=== PATIENT | female | born 1960 | race Caucasian/White ===

== ENCOUNTER → 2019-06-12 10:52 | Outpatient (CLI) | payer OTHER, SELFPAY ==
--- NOTE | 2019-06-12 | DI.MG.S_ITS ---
BILATERAL DIGITAL SCREENING MAMMOGRAM 3D/2D WITH CAD: 06/12/2019 CLINICAL: Routine screening. Family history of breast cancer. Comparison is made to exams dated: 01/29/2016 mammogram, 01/28/2017 mammogram, and 01/28/2018 mammogram - [facility] for [email or web address]. There are scattered fibroglandular elements in both breasts. Current study was also evaluated with a Computer Aided Detection (CAD) system. No significant masses, calcifications, or other findings are seen in either breast. There has been no significant interval change. IMPRESSION: NEGATIVE There is no mammographic evidence of malignancy. A 1 year screening mammogram is recommended. This exam was interpreted at Station ID: [id number]. NOTE: For mammograms, a report in lay terms will be sent to the patient. Approximately 15% of breast malignancies will not be visualized mammographically. In the management of a palpable breast mass, a negative mammogram must not discourage biopsy of a clinically suspicious lesion. Electronically Signed By: Ramon johnson/shazia:06/14/2019 12:53:34 letter sent: Normal Exam ACR BI-RADS Category 1: Negative [id number]
== END ==
PROVIDERS: Visit Provider Family Medicine
DX: Z12.31 Encounter for screening mammogram for malignant neoplasm of breast (principal); Z80.3 Family history of malignant neoplasm of breast
CPT/HCPCS: 77063; 77067

== ENCOUNTER → 2019-12-03 10:11 | Outpatient (CLI) | payer OTHER, SELFPAY ==
[2019-12-03 23:06] LABS: COVID19 Sendout Not Detected (Not Detect)
== END ==
PROVIDERS: Visit Provider Physician Assistant
DX: Z01.812 Encounter for preprocedural laboratory examination (principal)
CPT/HCPCS: 87635

== ENCOUNTER 2019-12-06 06:36 | Inpatient (IN) | payer OTHER, SELFPAY ==
[2019-11-30 14:52] VITALS: BMI 29.2
[2019-12-06] VITALS (18 sets, daily range): BP systolic 109–151; BP diastolic 59–92; PULSE 75–102; RESP 8–19; TEMP 36.1–37.3; O2SAT 94–100; BMI 29.2; BMI 32.6
--- NOTE | 2019-12-06 | DI.RAD.S_ITS ---
PROCEDURE: XR LUMBAR SPINE 2-3V INDICATIONS: L4-5 TLIF, L5-S1 HWR AND REINCERTION TECHNIQUE: 2 intraoperative fluoroscopic views of the lumbar spine were acquired. COMPARISON: None. FINDINGS: Intraoperative fluoroscopic images of lower lumbar spine shows transpedicular fusion at L4 through S1 levels with intervertebral spacer placement at L4-5 level. IMPRESSION: Fluoroscopy guidance was provided intraoperatively for fusion of lower lumbar spine. Dictated by: Ishan Hylton M.D. on 12/06/2019 at 12:22 Approved by: Ishan Hylton M.D. on 12/06/2019 at 12:23
[2019-12-06] MEDS: CLINDAMYCIN 600 MG/50 ML PIGGYBACK 50 MG IV (07:40)
[2019-12-06] MEDS: LACTATED RINGERS 1,000 ML 42 ML IV ×3 (07:40→13:15)
--- NOTE | 2019-12-06 07:46 | PM.PREOP ---
Pre-operative Note COVID-19 COVID-19 status: Negative Result date/Date tested (Pos, Neg/Pending): 12/03/19 Interval Note History & Physical reviewed/Exam performed by Physician: Yes Changes to H&P: No
--- NOTE | 2019-12-06 08:37 | SUR.OPER ---
Prone on spine table, head in foam head support, padded chest and pelvic supports, gel pad at knees, lower legs supported by pillows; nipples, genitalia and toes free of pressure, arms secured on foam padded arm boards at <90 degrees abduction. Tape over blanket at thigh secured to table.
[2019-12-06] MEDS: BUPIVACAINE LIPOSOME 266 MG/20 ML VIAL INJ (08:42)
[2019-12-06] MEDS: BUPIVACAINE 0.25% W/ EPI 30 ML VIAL INJ (08:43)
[2019-12-06] MEDS: ACETAMINOPHEN IV 1,000 MG/100 ML VIAL 400 MG IV (11:32)
--- NOTE | 2019-12-06 11:58 | PM.OP.1 ---
Operative Date/Time/Diagnoses Date of procedure: 12/06/19 Time of procedure: 07:58 Pre-op diagnosis: 1. Hx of L5-S1 fusion with retained hardware 2. L4-5 spondylolisthesis 3. L4-5, L5-S1 spinal stenosis Post-op diagnosis: same Procedure & Clinicians Procedure: 1. L4-5 posterolateral and posterior interbody fusion 2. L4-5 posterior interbody cage placement 3. L5-S1 posterior non-segmental instrumentation removal 4. L5-S1 revision laminectomy with exploration of fusion 5. L4-5, L5-S1 posterior segmental instrumentation with pedicle screw placement 6. L5-S1 posterolatearl fusion 7. Caldwell of bone marrow from iliac crest through a separate incision 8. Utilization of microsurgical technique and operating microscope Same procedure as scheduled: Yes Indications: Patient has been having chronic back pain and worsening lumbar radiculopathy.\ Patient had prior fusion surgery and has been having worsening back pain and leg pain as well as weakness in her legs. Patient failed multiple conservative management with worsening pain weakness and numbness in her lower extremity. Patient has been having difficulty performing activity of daily living. After discussing risks benefits of treatment options, patient elected proceed with surgery. Surgeon: Clarissa Rubio Vineyard Worker: Sandra Locke Click Yes if Unassisted: No Anesthesia Type: General Operative Notes Closure Type: primary Prosthetic devices, grafts, tissues, transplants, or devices: Globus revolve screws, Rise cage Applied: catheter Estimated Blood Loss (mL): 200 Blood products transfused: none Procedure in detail: Patient was seen in the preoperative area. Risks and benefits of the surgery was discussed with the patient. Informed consent was obtained from the patient and placed in the chart. Surgical site was marked. Patient was taken to the operative room. General anesthesia was administered. Prophylactic antibiotic was given to the patient less than 30 min before the incision was made. Patient was placed into a prone position on the Kevin table. Patient's back was then prepped and draped in the sterile fashion. Time-out was performed at this time. Using patient's previous scar incision was made over the L4-5 L5-S1 interval on the left side. Fascia was incised in line with skin incision. Patient's previously placed hardware over the L5-S1 level was identified by dissecting down to the level the hardware using a Bovie and a Clifton. The locking caps which was removed using globus screwdriver. The locking bora was then removed from the tulips of the pedicle screws using a Apolinar. The pedicle screws were then removed using the screwdriver. The screws were found to have good purchase. The Globus and MARS retractors was then placed into the wound and docked onto the L4 and L5 lamina using C-arm guidance. Using microsurgical technique and operating microscope a laminectomy facetectomy was performed by removing the L4 lamina and the L4-5 facet. The disc space at L4-5 level was identified next. And a total diskectomy was performed at L4-5 level. The endplates were decorticated using a rasp and shaver. The total diskectomy and decortication was performed at L4-5 level in order to to accomplish a L4-5 fusion. The local bone from the laminectomy and facetectomy was saved for local bone grafting. After the total diskectomy and decortication was completed, Bio4 bone graft material was combined with local bone that was harvested earlier. At this time, a separate skin is incision was made over the iliac crest. A Jamshidi needle was inserted into the iliac crest through a separate skin incision. 5 cc of bone marrow aspiration was obtained through the separate skin incision using a Jamshidi needle from the iliac crest. The bone marrow aspiration was combined with local bone and the Bio4 bone grafting material. The bone grafting material was placed into the L4-5 interbody space along with a expandable cage. The cage was expanded to its maximum height using the torque limiting screwdriver. At this time a mirror image incision was made on the right side. The fascia was incised in line with the skin incision. Patient's previously placed hardware on the right side was then removed in the same fashion as it was on the left side. The hardware was also found to have good purchase. The fusion mass on the left side was exposed by performing a right-sided hemilaminectomy at L5-S1 level. The hemilaminectomy was performed using the Kerrison rongeur to undercut the lamina as well removing additional epidural scar tissue for purpose of decompressing the epidural space. The fusion mass was explored and was found have visible motion indicating pseudoarthrosis. Globus MARS retractor was inserted and docked onto the L4-5 L5-S1 posterolateral gutter. Using the power drill, posterior-lateral decortication was performed at L4-5 L5-S1 level until bleeding cortical bone was identified. The remaining bone grafting material was placed into the L4-5 L5-S1 posterior lateral gutter he order to accomplish posterolateral fusion at the L4-5 L5-S1 level. Using the double C-arm technique, pedicle screws were placed into the L4, L5 and S1 pedicles bilaterally. This was done by placing the Jamshidi needle into the pedicles, then placing the guidewires over the Jamshidi needle, and finally placing the cannulated screws over the guidewires bilaterally. After the pedicle screws were placed, 2 titanium rods was locked into the heads of the pedicle screws using locking caps and torque limiting screwdriver. After all the hardware was placed, and confirmed with AP and lateral C-arm imaging, the wound was then irrigated with sterile normal saline and packed with Ray-Ludmila gauze for 3 min to accomplish hemostasis. After the gauze was removed the deep fascia was closed with #1 Vicryl suture. The subcutaneous layer was closed with 2-0 Vicryl. The skin was closed with skin emelia. Patient tolerated the procedure well. There were no complications. Complications: none Post-operative Condition: stable Disposition: PACU Plan for aftercare: Admit to inpatient hospital
[2019-12-06] MEDS: fentaNYL 100 MCG/2 ML INJ IV (12:30)
[2019-12-06] MEDS: ONDANSETRON 4 MG/2 ML INJ IV (12:30)
[2019-12-06] MEDS: hydrOXYzine 50 MG/ML INJ 25 MG IM (12:30)
--- NOTE | 2019-12-06 13:05 | SUR.PHASEI ---
Patient repositioning herself in bed. States that she cannot get comfortable and that her pain is an 8/10. Patient falls asleep after conversation. VSS. This nurse will wait to administer more pain medication due to drowsiness and the continued need for oxygen.
--- NOTE | 2019-12-06 13:46 | PC.NURSE ---
Pt arrived via PACU. Pt rouses to her name and knows she has had surgery and that she is at [facility]. Described surgery but fell asleep mid way through. Pt turned to comfort on left side. instructed not to twist and that we would log roll her as needed. Skin intact, dressing mid back shows dime size shadow drainage. VSS, SCD's on, continuous pulse Ox in place. Report rec'd from DRIVER MANAGER.
--- NOTE | 2019-12-06 14:29 | CM.DANOTE ---
DCP: Case received, EMR reviewed and checked on patient. Patient sleeping in her room, already placed name of this adult protective caseworker on the board in her room when she was down in surgery. Unable to speak to patient at this time, but was able to review some of her history in her chart to initiate DCP assessment. Patient is a 59 year old female who admitted early this morning to the care of the orthopedic team. PCP: Unknown at this time, have not been able to speak to patient as of yet. Payer: confirmed: Seven. Patient came to the hospital for a surgical procedure. She had an L4-5 posteolateral & posterior interbody fusion. According to notes, patient has had history of chronic bilateral lower back pain. Patient is sleeping in her room, she recently came out of surgery. Patient resides in [place] and is employed at [employer]. She has a son named Lc, who also lives in [place]. P: DCP to follow and be available for any resources needed. She has orders for P.T & O.T. Will collaborate with therapy team as well when they start to work with patient. Will also attempt to meet with patient tomorrow as well, when she is awake. Faina Shen RN/Work Car Operator
[2019-12-06] MEDS: SODIUM CHLORIDE 0.9% 1,000 ML 100 ML IV (15:03)
[2019-12-06] MEDS: CLINDAMYCIN 900 MG/50 ML PIGGYBACK 50 MG IV ×2 (15:31→23:29)
[2019-12-06] MEDS: GABAPENTIN 600 MG TABLET PO ×2 (15:31→20:41)
--- NOTE | 2019-12-06 16:48 | PT.IIE ---
Current Diagnoses Spondylolisthesis, lumbar region (12/06/19) Other spondylosis with radiculopathy, lumbosacral region (12/06/19) Spinal stenosis, lumbar region with neurogenic claudication (12/06/19) Arthrodesis status (12/06/19) Surgery Performed Operation Date: 12/06/19 07:45 Actual Procedures p L4-5 TLIF, L5-S1 HWR, L4-S1 PSF w/ instrumenation - Clarissa Rubio MD Surgical History (Last Updated 08/31/19 @ 09:24 by Sandra Wheeler RN) History of bilateral tubal ligation (Acute) History of colonoscopy (Acute) History of lumbar fusion (Acute 06/2000) History of partial hysterectomy (Acute) Hx of dilation and curettage (Acute) Hx of elbow surgery (Acute) Hx of shoulder surgery (Acute) Hx of shoulder surgery (Acute) Medical History (Last Updated 08/31/19 @ 09:35 by Sandra Wheeler RN) Asthma (Acute) Chronic back pain (Acute) DDD (degenerative disc disease) (Acute) Diverticulosis (Acute) Floaters (Acute) Ganglion cyst of both wrists (Acute) HTN (hypertension) (Acute) Kidney stones (Acute ~2017) Pelvic fracture (Acute 09/2017) Sciatica (Acute) Physical Therapy Inpatient Evaluation/Re-Eval M1 PT/OT-IP Prior Functional Status Start: 12/06/19 14:48 Freq: NEEDED Status: Active Protocol: Document 12/06/19 16:26 AW (Rec: 12/06/19 16:47 AW [id number]) Medical Review Prior Functional Status Medical History Reviewed Yes Communication Pt is an effective verbal communicator. Mobility and Gait Pt reports independent community ambulation up to ~1/ 8 mile. As recently as 6 months ago, she was walking up to 2 miles per day with her dog. Activities of Daily Living and IADL's Independent, including driving , shopping, and cooking. Social History Household Members children Living Arrangements House Number of Floors (Floors) Two Floors Number of Stairs To Enter/Railing? 2 GERALDINE through the garage with left rail ascending. Pt's bedroom is on the second level , requiring 7 steps with right rail ascending, landing, and another 8 steps with left rail ascending. Pt has been able to stay on the main level after a stable pelvic fracture but hopes to be able to sleep in her own bed when she discharges. Home Environment Standard Height Toilet,Walk in Shower,Built-In Shower Seat Home Equipment Front Wheel Walker,Straight Cane Employment Status Unemployed Additional Social History Comment Pt was working at [employer] until recently and hopes to return to that job. She lives with her 25 yo son who works full-time on the conduit cleaner. Pt states he would be able to help her with anything she needs during the day. M2 PT-IP Current Condition Start: 12/06/19 14:48 Freq: NEEDED Status: Active Protocol: Document 12/06/19 16:26 AW (Rec: 12/06/19 16:47 AW [id number]) Physical Therapy Current Condition Current Condition Evaluation Date 12/06/19 Treatment Diagnosis s/p L4-5 L5-S1 TLIF, impaired mobility Onset Date 12/06/19 Precautions Lumbar Precautions Log Roll,No Twisting,Limit Bending,Lifting Restriction of 10 lbs,Gait Belt above Incisional Area M3 PT-IP Subjective Start: 12/06/19 14:48 Freq: NEEDED Status: Active Protocol: Document 12/06/19 16:26 AW (Rec: 12/06/19 16:47 AW [id number]) Subjective Physical Therapy Visit Type Type Initial Evaluation Visit Start Time 15:58 Visit Stop Time 16:24 Total Visit Minutes 26 Physical Therapy Visit Comments Patient Comments Pt is groggy but willing to participate with PT. Therapy Pain Assessment Pain When Pain Assessed At Rest Pain Present Pain Present Pain Reported Location low back Intensity 9 Scale Used unchanged with mobility Pain Behaviors Facial Grimacing,Restlessness, Wincing Pain Management Techniques Apply Cold,Re-positioning, Timing of Activity with Medications M4 PT-IP Mobility and Gait Start: 12/06/19 14:48 Freq: NEEDED Status: Active Protocol: Document 12/06/19 16:26 AW (Rec: 12/06/19 16:47 AW [id number]) PT-Bed Mobility Assessment Rolling Type of Rolling Log Rolling,Roll to Left Level of Assist Contact Guard Assistance Supine to Sit Supine to Sit Minimal Assistance,1 Person Assistance Sit to Supine Sit to Supine Minimal Assistance,1 Person Assistance Scooting Scooting to Edge of Bed Contact Guard Assistance PT-Transfer Assessment Sit to and From Stand Sit to and from Stand Contact Guard Assistance,1 Person Assistance,Use of Upper Extremities Equipment Transfer Assistive Device Gait Belt,Front Wheeled Walker Orthotic/Prosthetic Devices or Brace: No Transfers Transfer Destination Bed Transfer Technique pt ambulated with FWW Transfer Ability Level of Assist Contact Guard Assistance Comments Mobility Comments Pt was sidelying on her left side when PT arrived. She completed sidelying to sit with min A x 1 and then was able to scoot toward EOB CGA. She complained of mild lightheadedness which subsided within one minute. SBP was stable in the 150's. She then stood from the bed with the FWW and CGA, requiring cues to keep both hands on the bed for pushoff to avoid lumbar twisting. Pt then slowly ambulated 20 feet in the room with FWW CGA before requesting return to bed due to continued grogginess. Pt completed sit to sidelying with min A x 1 to elevate her legs to the bed. Pt was repositioned on her left side with call light, table, and all needs within reach. Gait Assessment Gait Gait Assistance Required: Contact Guard Assist Distance (Feet) 20 Able to Maintain Weight Bearing Status Yes During Gait Assistive Devices Assistive Device Gait Belt,Front Wheeled Walker Orthotic/Prosthetic Devices or Brace: No Gait Deviations General Gait Pattern Antalgic,Decreased Stride Length,Decreased Feet Clearance,Flexed Trunk,Step-to Gait Factors Limiting Gait Function Factors Limiting Gait Function Decreased Activity Tolerance, Decreased Strength,Limited Range of Motion,Pain,Poor Balance,Poor Safety Awareness Comments Gait Comments See mobility comments. Stair Climbing Assessment Comments Stair Climbing Comments Not assessed due to pt's decreased ability to attend to task. PT-Balance Assessment Sitting Balance and Reactions Static Sitting Balance Ability Good Dynamic Sitting Balance Ability Good Standing Balance and Reactions Static Standing Balance Ability Fair Dynamic Standing Balance Ability Fair Device Used FWW M5 PT-IP Objective Assessments Start: 12/06/19 14:48 Freq: NEEDED Status: Active Protocol: Document 12/06/19 16:26 AW (Rec: 12/06/19 16:47 AW [id number]) Orientation Orientation/Cognition Level of Alertness Alert Orientation Name,Day of Week,Place, Situation Language Function Ability No Deficits Noted Safety Awareness Decreased Safety Awareness Memory Description No Deficits Noted Gross Range of Motion Upper Extremity ROM Assessment Within Functional Limits Lower Extremity ROM Assessment Within Functional Limits Strength Lower Extremity Strength Assessment Bilaterally Impaired Comments Strength Comments Grossly 4-/5 to 4/5 BLE Coordination Assessment Gross Coordination Gross Coordination WNL Sensation Assessment Sensation Gross Sensation WNL Comments Sensation Comments Pt reported lack of shooting pain in either LE. Muscle Tone Muscle Tone WNL Yes M6 PT-IP Treatment Start: 12/06/19 14:48 Freq: NEEDED Status: Active Protocol: Document 12/06/19 16:26 AW (Rec: 12/06/19 16:47 AW [id number]) Physical Therapy Treatment Education Education Provided Precautions,Weight Bearing Status,Post-Op Packet,Safety Other Treatments Other Treatment Performed Provided education on role of PT, plan of care, post-op precautions, and safe use of FWW. M7 PT-IP Assessment and Plan Start: 12/06/19 14:48 Freq: NEEDED Status: Active Protocol: Document 12/06/19 16:26 AW (Rec: 12/06/19 16:47 AW [id number]) PT Summary Assessment and Plan Potential Rehabilitation Potential Good Status of Condition at Evaluation Evolving Summary Impairments Pain,ROM,Strength,Balance,Bed Mobility,Transfers,Gait, Activity Tolerance Assessment Summary Oksana is a 59 yo woman seen for PT evaluation on POD0 following TLIF. She is functionally independent at baseline but admits to a limit of 1/8 mile ambulation due to low back and LLE pain. On evaluation, pt reported 9/10 pain at rest and during mobility. She moved carefully and without increased agitation, denying lower extremity pain. She required min assist for bed mobility and CGA for all out of bed mobility with FWW. PT will continue to follow for progress but anticipates she will be safe to discharge to her home environment with family assist once medically cleared. Goals Bed Mobility Goal Independent Transfer Goal Independent,Front Wheeled Walker Gait Goal Independent,Front Wheel Walker Gait Distance 150 Other Goals - up/down 7 steps with R rail ascending and 8 steps with L rail ascending SBA Recommendations To Nursing Amount of Assist Needed 1 Person Assist Discharge Recommendations PT Discharge Recommendations Home with Assistance Other Discharge Recommendations Will continue to assess and refine recommendation as pt progresses Transportation Needs at Discharge Private Vehicle
[2019-12-06] MEDS: OXYCODONE IR 10 MG TABLET PO (17:04)
[2019-12-06] MEDS: ACETAMINOPHEN 325 MG TABLET 650 MG PO (20:40)
[2019-12-06] MEDS: SENNOSIDES 8.6 MG TABLET 17.2 MG PO (20:41)
[2019-12-06] MEDS: DOCUSATE 100 MG CAPSULE PO (20:41)
--- NOTE | 2019-12-06 22:50 | PC.NURSE ---
reinforced dressing with coversite, old dressing was saturated. pt ambulated with PT today and walked around in her room. gonzalez patent. pain controlled with oxycodone 10mg. call light in reach. bed alarm active.
[2019-12-07] MEDS: SODIUM CHLORIDE 0.9% 1,000 ML 100 ML IV (03:00)
[2019-12-07 06:00] VITALS: BP 105/53; PULSE 80; RESP 16; TEMP 36.9; O2SAT 95
[2019-12-07] MEDS: OXYCODONE IR 10 MG TABLET PO ×3 (06:11→20:20)
[2019-12-07 06:28] LABS: Hematocrit 29.2 % (36-46); Hemoglobin 10.1 g/dL (12.0-16.0)
[2019-12-07] MEDS: GABAPENTIN 600 MG TABLET PO ×3 (08:05→20:20)
[2019-12-07] MEDS: LOSARTAN 50 MG TABLET 100 MG PO (08:05)
[2019-12-07] MEDS: DOCUSATE 100 MG CAPSULE PO ×2 (08:05→20:20)
--- NOTE | 2019-12-07 08:12 | PM.PN.1 ---
Exam Vital Signs (past 8 hours): - 12/07/19 06:00 Temperature 98.4 F Pulse Rate 80 Respiratory Rate 16 Blood Pressure 105/53 L Pulse Oximetry 95 Oxygen Delivery Method Room Air Oxygen Flow Rate 0 Objective Labs Result Diagrams: 12/07/19 06:13 Labs: Laboratory Results - last 24 hr 12/07/19 06:13 Hgb 10.1 L Hct 29.2 L Assessment & Plan Assessment & Plan narrative: Patient is admitted after surgery. Patient has been stable and eating drinking well. Patient is neurovascularly intact on exam. Patient has no signs or symptoms of DVT. Patient's dressing is clean dry and intact. Pain consistent with post op status. PT today for mobility training. Will re-assess tomorrow.
[2019-12-07 08:44] VITALS: BP 130/71; PULSE 96; RESP 16; TEMP 37; O2SAT 93
--- NOTE | 2019-12-07 09:37 | OT.IP.EVAL ---
Current Diagnoses Spondylolisthesis, lumbar region (12/06/19) Other spondylosis with radiculopathy, lumbosacral region (12/06/19) Spinal stenosis, lumbar region with neurogenic claudication (12/06/19) Arthrodesis status (12/06/19) Surgery Performed Operation Date: 12/06/19 07:45 Actual Procedures p L4-5 TLIF, L5-S1 HWR, L4-S1 PSF w/ instrumenation - Clarissa Rubio MD Past Medical History (Last Updated 08/31/19 @ 09:35 by Sandra Wheeler RN) Asthma (Acute) Chronic back pain (Acute) DDD (degenerative disc disease) (Acute) Diverticulosis (Acute) Floaters (Acute) Ganglion cyst of both wrists (Acute) HTN (hypertension) (Acute) Kidney stones (Acute ~2017) Pelvic fracture (Acute 09/2017) Sciatica (Acute) Surgical History (Last Updated 08/31/19 @ 09:24 by Sandra Wheeler RN) History of bilateral tubal ligation (Acute) History of colonoscopy (Acute) History of lumbar fusion (Acute 06/2000) History of partial hysterectomy (Acute) Hx of dilation and curettage (Acute) Hx of elbow surgery (Acute) Hx of shoulder surgery (Acute) Hx of shoulder surgery (Acute) Occupational Therapy Inpatient Evaluation/Re-Eval M1 PT/OT-IP Prior Functional Status Start: 12/07/19 12:58 Freq: NEEDED Status: Active Protocol: Document 12/07/19 08:40 [facility] (Rec: 12/07/19 13:17 [facility] [id number]) Medical Review Prior Functional Status Medical History Reviewed Yes Communication Pt is an effective verbal communicator. Mobility and Gait Pt reports independent community ambulation up to ~1/ 8 mile. As recently as 6 months ago, she was walking up to 2 miles per day with her dog. Activities of Daily Living and IADL's Independent, including driving , shopping, and cooking. Social History Household Members children Living Arrangements House Number of Floors (Floors) Two Floors Number of Stairs To Enter/Railing? 2 GERALDINE through the garage with left rail ascending. Pt's bedroom is on the second level , requiring 7 steps with right rail ascending, landing, and another 8 steps with left rail ascending. Pt has been able to stay on the main level after a stable pelvic fracture but hopes to be able to sleep in her own bed when she discharges. Home Environment Standard Height Toilet,Walk in Shower,Built-In Shower Seat Home Equipment Front Wheel Walker,Straight Cane Employment Status Unemployed Additional Social History Comment Pt was working at [employer] until recently and hopes to return to that job. She lives with her 25 yo son who works full-time on the rn night. Pt states he would be able to help her with anything she needs during the day. M2 OT-IP Current Condition Start: 12/07/19 12:58 Freq: Status: Active Protocol: Document 12/07/19 08:40 [facility] (Rec: 12/07/19 13:17 [facility] [id number]) Occupational Therapy Current Condition Current Condition Evaluation Date 12/07/19 Treatment Diagnosis Lumbar radiculopathy, S/P L4-5 TLIF, L5-S1 HWR, L4-5 PSF with instr. Diagnosis Onset Date 12/06/19 Post Operative Precautions Lumbar Precautions Log Roll,No Twisting,Limit Bending,Lifting Restriction of 10 lbs,Gait Belt above Incisional Area Weight Bearing Status Weight Bearing Status Weight Bear as Tolerated M3 OT- IP Subjective and Pain Start: 12/07/19 12:58 Freq: Status: Active Protocol: Document 12/07/19 08:40 [facility] (Rec: 12/07/19 13:17 [facility] [id number]) OT- Subjective Occupational Therapy Visit Type Type Initial Evaluation Visit Start Time 08:40 Visit Stop Time 09:37 Total Visit Minutes 57 Occupational Therapy Visit Comments Patient Comments Pt willing to get out of bed. Patient/Caregiver Goals To go home. OT Pain Assessment Pain When Pain Assessed At Rest Pain Present Pain Present Pain Reported Location low back Intensity 6 M4 OT- IP ADL's Start: 12/07/19 12:58 Freq: Status: Active Protocol: Document 12/07/19 08:40 [facility] (Rec: 12/07/19 13:17 [facility] [id number]) OT HAA-Xlnx-Phtjhup General Evaluation Self-Feeding Ability Independent OT ADL-Grooming General Evaluation Grooming Ability Standby Assistance Areas Needing Assistance Retrieving/Set-up of Grooming Items Comments OT Grooming Comments Able to do while standing at the sink with FWW. OT ADL-Oral Care General Eval Oral Care Ability Independent Comments Oral Care Comments Educated pt on back precautions to lean at hips to spit or spit into a cup. OT ADL-Dressing General Eval Lower Body Dressing Ability Maximum Assistance Areas Needing Assistance Socks Assistive Devices Dressing Assistive Devices Manager Ed,Sock Aid Comments OT Dressing Comments Educated pt on back precautions and how to use LB dressing equipment to increase ease and independence. LB dressing equipment issued to pt. OT ADL-Toileting General Evaluation Toileting Ability Total Assistance Comments OT Toileting Comments Pt gonzalez in place. Educated pt best to stand to wipe and get a toilet paper aid as pt not wanting her son to assist her with pericare needs at home. OT ADL-Bathing Bathing Type Bathing Type Sponge Bath General Evaluation Bathing Ability Moderate Assistance Comments OT Bathing Comments Pt able do pericare needs and needing assist to help clean in back as pt unable to reach all the way back. Suggested for pt to get toilet paper aid or long thin towel to assist for hygiene needs at home. M5 OT- IP IADL's Start: 12/07/19 12:58 Freq: Status: Active Protocol: Document 12/07/19 08:40 [facility] (Rec: 12/07/19 13:17 [facility] [id number]) OT-Instrumental Activities of Daily Living Home Safety Awareness Awareness of Need for Assistance at Home Good Awareness Ability to Problem Solve Emergency Able to Problem Solve Situations Home Safety Comments At this time, pt's son will be able to assist for IADl needs . Inspector And Unloader Inspector And Unloader Caregiver Provides Assist M6 OT- IP Functional Cognition Start: 12/07/19 12:58 Freq: Status: Active Protocol: Document 12/07/19 08:40 [facility] (Rec: 12/07/19 13:17 [facility] [id number]) OT- Vision and Hearing OT- Hearing Assessment OT- Hearing Assessment WFL M7 OT- IP Mobility and Balance Start: 12/07/19 12:58 Freq: Status: Active Protocol: Document 12/07/19 08:40 [facility] (Rec: 12/07/19 13:17 [facility] [id number]) OT-Transfer Assessment Sit to and From Stand Sit to and from Stand Contact Guard Assistance, Minimal Assistance Transfers Transfer Ability Contact Guard Assistance Technique Transfer Destination Bed,Chair Transfer Technique Stand Step Pivot Devices Transfer Assistive Devices Gait Belt,Front Wheeled Walker Comments Mobility Comments Attempt to have pt roll to the left to get out of bed as pt does so at home. Pt already to her right side and unable to roll to the left and complaining of back spasms and not wanting to try to get out on the left side at this time . Therefore pt already rolled on the right side and needing assist to help place pillow in between her knees able to get up with grab bar and and CGA form therapist. CGA to FIORELLA to stand to FWW. CGA to walk with FWW . OT- Gait Assessment Comments Gait Ability Comments CGA with FWW. OT- Balance Assessment Sitting Balance and Reactions Static Sitting Balance Ability Normal Dynamic Sitting Balance Ability Good Standing Balance and Reactions Static Standing Balance Ability Fair M8 OT- IP Objective Assessments Start: 12/07/19 12:58 Freq: Status: Active Protocol: Document 12/07/19 08:40 [facility] (Rec: 12/07/19 13:17 [facility] [id number]) OT Gross Range of Motion Upper Extremity Range of Motion Assessment Within Functional Limits OT Strength Upper Extremity Strength Assessment Within Functional Limits M9 OT- IP Assessment and Plan Start: 12/07/19 12:58 Freq: Status: Active Protocol: Document 12/07/19 08:40 [facility] (Rec: 12/07/19 13:17 [facility] [id number]) OT Summary Assessment and Plan Potential Rehabilitation Potential Good Analytic Complexity at Evaluation Low Summary OT Impairments Pain,Functional Mobility, Dressing,Toileting,Bathing, Toilet Transfers,Shower Transfers,Activity Tolerance Progress Towards Goals Progressing Toward Goals,Slow Progress due to Pain Assessment Summary Pt low complexity and main barriers are pain, bed mobility and now also needing assist for ADL's due to her recent back surgery. OT to work with pt on independence with ADl's with LB dressing equipment needs as pt does not want her son to assist for any hygiene needs. Pt looking to go home with pt's son assist. Pt's son may need to come in for caregiver training pending how pt progresses with bed mobility needs. Goals Grooming Goal Independent Dressing Goal Independent Toileting Goal Independent Bathing Goal Standby Assistance Toilet Transfer Goal Independent Shower Transfer Goal Standby Assistance Patient/Caregiver Education Goal Caregiver Independent Assisting Patient Days to Meet Goals 5 Frequency of Treatment Frequency Of Treatment Once a Day Treatment Plan OT Treatment Plan ADL Training,Functional Mobility,Patient/Family Education,Discharge Planning Other Treatment Recommendations and Next Shower, continue pratcie with Treatment Focus LB dressing equipmnt for dressing needs. Discharge Recommendations OT Discharge Recommendations Home with Assistance Home Equipment Needs Shower chair, ? BSC/RTS Transportation Needs at Discharge Private Vehicle
[2019-12-07] MEDS: hydrOXYzine pamoate 25 MG CAPSULE PO ×3 (09:57→20:20)
[2019-12-07] MEDS: Budesonide-Formoterol [Symbicort] 2 EACH INH (09:58)
--- NOTE | 2019-12-07 11:15 | PT.IPTN ---
Current Diagnoses Spondylolisthesis, lumbar region (12/06/19) Other spondylosis with radiculopathy, lumbosacral region (12/06/19) Spinal stenosis, lumbar region with neurogenic claudication (12/06/19) Arthrodesis status (12/06/19) Surgery Performed Operation Date: 12/06/19 07:45 Actual Procedures p L4-5 TLIF, L5-S1 HWR, L4-S1 PSF w/ instrumenation - Clarissa Rubio MD Physical Therapy Treatment Note M2 PT-IP Current Condition Start: 12/06/19 14:48 Freq: NEEDED Status: Active Protocol: Document 12/06/19 16:26 AW (Rec: 12/06/19 16:47 AW [id number]) Physical Therapy Current Condition Current Condition Evaluation Date 12/06/19 Treatment Diagnosis s/p L4-5 L5-S1 TLIF, impaired mobility Onset Date 12/06/19 Precautions Lumbar Precautions Log Roll,No Twisting,Limit Bending,Lifting Restriction of 10 lbs,Gait Belt above Incisional Area M3 PT-IP Subjective Start: 12/06/19 14:48 Freq: NEEDED Status: Active Protocol: Document 12/07/19 10:53 [facility] (Rec: 12/07/19 12:13 [facility] [id number]) Subjective Physical Therapy Visit Type Type Treatment Note Visit Start Time 10:52 Visit Stop Time 11:15 Total Visit Minutes 23 Number of SURVEYOR HELPER ROD Visits 1 Physical Therapy Visit Comments Patient Comments Pt willing to do therapy Therapy Pain Assessment Pain When Pain Assessed At Rest Pain Present Pain Present Pain Reported Location low back Intensity 7 Scale Used decreased with mobility Pain Management Techniques Apply Cold,Re-positioning, Timing of Activity with Medications M4 PT-IP Mobility and Gait Start: 12/06/19 14:48 Freq: NEEDED Status: Active Protocol: Document 12/07/19 10:53 [facility] (Rec: 12/07/19 12:13 [facility] [id number]) PT-Transfer Assessment Sit to and From Stand Sit to and from Stand Contact Guard Assistance,1 Person Assistance,Use of Upper Extremities Equipment Transfer Assistive Device Gait Belt,Front Wheeled Walker Orthotic/Prosthetic Devices or Brace: No Transfers Transfer Destination Chair Transfer Technique pt ambulated with FWW Transfer Ability Level of Assist Contact Guard Assistance Comments Mobility Comments Pt stood from chair CGA, pt then ambulated to therapy stairs ~160ft, pt climbed three stairs x2 with left rail and HH assist. Pt then ambulated back to room ~160ft. Pt refused bed mobility and returned to chair requiring SBA for stand-sit. Gait Assessment Gait Gait Assistance Required: Standby Assistance Distance (Feet) 320 Able to Maintain Weight Bearing Status Yes During Gait Assistive Devices Assistive Device Gait Belt,Front Wheeled Walker Gait Deviations General Gait Pattern Antalgic,Decreased Stride Length,Decreased Feet Clearance,Flexed Trunk Factors Limiting Gait Function Factors Limiting Gait Function Decreased Activity Tolerance, Decreased Strength,Limited Range of Motion,Pain,Poor Balance Comments Gait Comments Pt ambulated ~320ft w/FWW/SBA, pt used small step through gait pattern and slow porsha. Pt reported decrease in pain with ambulation. Stair Climbing Assessment Evaluation Level of Assist On Stairs Contact Guard Assistance,1 Person Assistance Devices Stair Climbing Assistive Devices Left Railing Technique/Endurance Stair Climbing Direction Ascend and Descend Stair Climbing Technique Step to Step Number of Steps Climbed 3 Stair Climbing Set # Repetitions (reps) 2 Comments Stair Climbing Comments Pt used left rail and HH assist on right side to climb stairs. Pt was able to complete two sets of three steps. M5 PT-IP Objective Assessments Start: 12/06/19 14:48 Freq: NEEDED Status: Active Protocol: Document 12/06/19 16:26 AW (Rec: 12/06/19 16:47 AW [id number]) Orientation Orientation/Cognition Level of Alertness Alert Orientation Name,Day of Week,Place, Situation Language Function Ability No Deficits Noted Safety Awareness Decreased Safety Awareness Memory Description No Deficits Noted Gross Range of Motion Upper Extremity ROM Assessment Within Functional Limits Lower Extremity ROM Assessment Within Functional Limits Strength Lower Extremity Strength Assessment Bilaterally Impaired Comments Strength Comments Grossly 4-/5 to 4/5 BLE Coordination Assessment Gross Coordination Gross Coordination WNL Sensation Assessment Sensation Gross Sensation WNL Comments Sensation Comments Pt reported lack of shooting pain in either LE. Muscle Tone Muscle Tone WNL Yes M6 PT-IP Treatment Start: 12/06/19 14:48 Freq: NEEDED Status: Active Protocol: Document 12/06/19 16:26 AW (Rec: 12/06/19 16:47 AW [id number]) Physical Therapy Treatment Education Education Provided Precautions,Weight Bearing Status,Post-Op Packet,Safety Other Treatments Other Treatment Performed Provided education on role of PT, plan of care, post-op precautions, and safe use of FWW. M7 PT-IP Assessment and Plan Start: 12/06/19 14:48 Freq: NEEDED Status: Active Protocol: Document 12/07/19 10:53 CLB (Rec: 12/07/19 12:13 CLB [id number]) PT Summary Assessment and Plan Summary Assessment Summary Pt able to ambulate ~320ft w/ FWW/SBA and climb two sets of stairs for total of 6 steps. Pt recalled 2/3 back precautions. Pt will likely be able to d/c home with assist of her son. Goals Bed Mobility Goal Independent Transfer Goal Independent,Front Wheeled Walker Gait Goal Independent,Front Wheel Walker Gait Distance 150 Other Goals - up/down 7 steps with R rail ascending and 8 steps with L rail ascending SBA Frequency of Treatment Frequency Of Treatment Twice a Day Recommendations To Nursing Amount of Assist Needed 1 Person Assist Discharge Recommendations PT Discharge Recommendations Home with Assistance Transportation Needs at Discharge Private Vehicle
[2019-12-07 13:00] VITALS: BP 117/68; PULSE 93; RESP 15; TEMP 36.1; O2SAT 92
--- NOTE | 2019-12-07 13:03 | CM.DPC ---
DCP Cont: Was able to meet with patient today. She was sitting up in chair, alert and oriented. Confirmed with patient that son resides with her. He works overnight cashier, and will be able to assist her during the day if needed. She also confirmed that she does have a primary care provider at [facility], Dr. Armstrong. Patient uses no DME supplies at baseline. She is currently employed at [employer]. She indicated that when she goes back, she will be on light duty. She lost her approximately 5 years ago, and moved to this area from [place]. She has two sons. P: DCP to continue to follow. Patient should be able to go home when she is medically stable. Faina Shen RN/Manager [place]
--- NOTE | 2019-12-07 14:24 | PT.IPTN ---
Current Diagnoses Spondylolisthesis, lumbar region (12/06/19) Other spondylosis with radiculopathy, lumbosacral region (12/06/19) Spinal stenosis, lumbar region with neurogenic claudication (12/06/19) Arthrodesis status (12/06/19) Surgery Performed Operation Date: 12/06/19 07:45 Actual Procedures p L4-5 TLIF, L5-S1 HWR, L4-S1 PSF w/ instrumenation - Clarissa Rubio MD Physical Therapy Treatment Note M2 PT-IP Current Condition Start: 12/06/19 14:48 Freq: NEEDED Status: Active Protocol: Document 12/06/19 16:26 AW (Rec: 12/06/19 16:47 AW [id number]) Physical Therapy Current Condition Current Condition Evaluation Date 12/06/19 Treatment Diagnosis s/p L4-5 L5-S1 TLIF, impaired mobility Onset Date 12/06/19 Precautions Lumbar Precautions Log Roll,No Twisting,Limit Bending,Lifting Restriction of 10 lbs,Gait Belt above Incisional Area M3 PT-IP Subjective Start: 12/06/19 14:48 Freq: NEEDED Status: Active Protocol: Document 12/07/19 14:05 CLB (Rec: 12/07/19 14:35 CLB [id number]) Subjective Physical Therapy Visit Type Type Treatment Note Visit Start Time 14:05 Visit Stop Time 14:24 Total Visit Minutes 19 Number of BRIM BLOCKER Visits 2 Physical Therapy Visit Comments Patient Comments Pt willing to do therapy Therapy Pain Assessment Pain When Pain Assessed At Rest Pain Present Pain Present Pain Reported Location low back Intensity 7 Scale Used decreased with mobility Pain Management Techniques Apply Cold,Re-positioning, Timing of Activity with Medications M4 PT-IP Mobility and Gait Start: 12/06/19 14:48 Freq: NEEDED Status: Active Protocol: Document 12/07/19 14:05 CLB (Rec: 12/07/19 14:35 CLB [id number]) PT-Bed Mobility Assessment Supine to Sit Supine to Sit Standby Assistance,Head of Bed Elevated Sit to Supine Sit to Supine Standby Assistance,Head of Bed Elevated Scooting Scooting to Edge of Bed Standby Assistance PT-Transfer Assessment Sit to and From Stand Sit to and from Stand Contact Guard Assistance,1 Person Assistance,Use of Upper Extremities Equipment Transfer Assistive Device Gait Belt,Front Wheeled Walker Orthotic/Prosthetic Devices or Brace: No Transfers Transfer Destination Bed Comments Mobility Comments Pt insisted having HOB elevated for supine<>sit. Pt was on left side and sat up on EOB SBA, Pt then scooted to get feet on floor SBA. Pt stood requiring CGA and assist with walker stability. Pt stood SBA while HOMEMAK[employer] emptied gonzalez bag. Pt ambulated in [place] ~300ft w/FWW/SBA with increased pace, step length and foot clearance. Pt states that pain decreases with ambulation. Pt returned to bed requiring SBA for sitting on EOB and sidelying in bed with HOB elevated. Pt left in bed on left side with pillow behind and in between legs for comfort. Alarm on and call light close. Gait Assessment Gait Gait Assistance Required: Standby Assistance Distance (Feet) 300 Able to Maintain Weight Bearing Status Yes During Gait Assistive Devices Assistive Device Gait Belt,Front Wheeled Walker Orthotic/Prosthetic Devices or Brace: No Gait Deviations General Gait Pattern Antalgic,Decreased Stride Length,Decreased Feet Clearance,Flexed Trunk Factors Limiting Gait Function Factors Limiting Gait Function Decreased Activity Tolerance, Decreased Strength,Limited Range of Motion,Pain,Poor Balance Comments Gait Comments See mobility comments. M5 PT-IP Objective Assessments Start: 12/06/19 14:48 Freq: NEEDED Status: Active Protocol: Document 12/06/19 16:26 AW (Rec: 12/06/19 16:47 AW [id number]) Orientation Orientation/Cognition Level of Alertness Alert Orientation Name,Day of Week,Place, Situation Language Function Ability No Deficits Noted Safety Awareness Decreased Safety Awareness Memory Description No Deficits Noted Gross Range of Motion Upper Extremity ROM Assessment Within Functional Limits Lower Extremity ROM Assessment Within Functional Limits Strength Lower Extremity Strength Assessment Bilaterally Impaired Comments Strength Comments Grossly 4-/5 to 4/5 BLE Coordination Assessment Gross Coordination Gross Coordination WNL Sensation Assessment Sensation Gross Sensation WNL Comments Sensation Comments Pt reported lack of shooting pain in either LE. Muscle Tone Muscle Tone WNL Yes M6 PT-IP Treatment Start: 12/06/19 14:48 Freq: NEEDED Status: Active Protocol: Document 12/06/19 16:26 AW (Rec: 12/06/19 16:47 AW [id number]) Physical Therapy Treatment Education Education Provided Precautions,Weight Bearing Status,Post-Op Packet,Safety Other Treatments Other Treatment Performed Provided education on role of PT, plan of care, post-op precautions, and safe use of FWW. M7 PT-IP Assessment and Plan Start: 12/06/19 14:48 Freq: NEEDED Status: Active Protocol: Document 12/07/19 14:05 CLB (Rec: 12/07/19 14:35 CLB [id number]) PT Summary Assessment and Plan Potential Rehabilitation Potential Good Status of Condition at Evaluation Evolving Summary Impairments Pain,ROM,Strength,Balance,Bed Mobility,Transfers,Gait, Activity Tolerance Assessment Summary Pt improving with gait quality with decreased pain with ambulation. Pt requires SBA for bed mobility and CGA for sit-stand. Goals Bed Mobility Goal Independent Transfer Goal Independent,Front Wheeled Walker Gait Goal Independent,Front Wheel Walker Gait Distance 150 Other Goals - up/down 7 steps with R rail ascending and 8 steps with L rail ascending SBA Frequency of Treatment Frequency Of Treatment Twice a Day Recommendations To Nursing Amount of Assist Needed 1 Person Assist Discharge Recommendations PT Discharge Recommendations Home with Assistance Transportation Needs at Discharge Private Vehicle
--- NOTE | 2019-12-07 15:28 | PC.NURSE ---
Ortho: Po pain med effective today. was able to work with PT and do therapy. Wanted gonzalez left in for another day and this was okay w/md. Pt reporting numbness to the top of the lt upper leg, md aware of this also. Resting at this time. Cont w/poc.
[2019-12-07 16:00] VITALS: BP 130/69; PULSE 98; RESP 16; TEMP 37.1; O2SAT 96
[2019-12-07] MEDS: SENNOSIDES 8.6 MG TABLET 17.2 MG PO (20:20)
[2019-12-07] MEDS: SODIUM CHLORIDE 0.9% FLUSH 10 ML IV (20:49)
[2019-12-07 21:06] VITALS: BP 129/72; PULSE 97; RESP 16; TEMP 37.5; O2SAT 94
--- NOTE | 2019-12-07 22:55 | PC.NURSE ---
pt ambulated in hallways twice in surinder shift. pain controlled with oxycodone and vistaril. lisa patent. dressing cdi. call light in reach. bed alarm active.
[2019-12-07 23:39] VITALS: BP 102/62; PULSE 89; RESP 16; TEMP 37.7; O2SAT 98
[2019-12-08] MEDS: hydrOXYzine pamoate 25 MG CAPSULE PO (00:16)
[2019-12-08] MEDS: OXYCODONE IR 10 MG TABLET PO ×2 (00:17→08:54)
[2019-12-08 05:40] VITALS: BP 128/66; PULSE 100; RESP 18; TEMP 38.4; O2SAT 93
[2019-12-08] MEDS: ACETAMINOPHEN 325 MG TABLET 650 MG PO (06:17)
--- NOTE | 2019-12-08 07:04 | PC.NURSE ---
Pt complained of some moderate to severe pain overnight that was relieved with Oxycodone and vistaril. Spiked a temp this morning 101.1F., given tylenol Zee removed at 0620 this morning. Left thigh numbness
--- NOTE | 2019-12-08 08:17 | PM.PN.1 ---
Exam Vital Signs (past 8 hours): - 12/08/19 05:40 Temperature 101.1 F H Pulse Rate 100 H Respiratory Rate 18 Blood Pressure 128/66 Pulse Oximetry 93 Oxygen Delivery Method Room Air Oxygen Flow Rate 0 Objective Labs Result Diagrams: 12/07/19 06:13 Assessment & Plan Assessment & Plan narrative: Patient is admitted after surgery. Patient has been stable and progressing with physical therapy. Patient is neurovascularly intact on exam. Patient has no signs or symptoms of DVT. Patient's dressing is clean dry and intact. Plan for d/c today after cleared by PT/OT.
[2019-12-08 08:53] VITALS: BP 119/41; PULSE 96; RESP 17; TEMP 36.6; O2SAT 97
[2019-12-08] MEDS: DOCUSATE 100 MG CAPSULE PO (08:54)
[2019-12-08] MEDS: GABAPENTIN 600 MG TABLET PO (08:54)
[2019-12-08] MEDS: MOMETASONE 120 SPRAY/17 GM NASAL SPRAY NASAL (08:55)
[2019-12-08 09:47] VITALS: PULSE 78; RESP 18
[2019-12-08] MEDS: Budesonide-Formoterol [Symbicort] 2 EACH INH (09:47)
--- NOTE | 2019-12-08 10:13 | PC.NURSE ---
Patient has a dry cover site to her back that is cdi, her gonzalez catheter was taken out this morning at 0600 and she has since voided. Up with sba to use the bathroom. She denies any new numbness or tingling to her lower extremities. Patient is working with physical therapy now and denies discomfort after medication given.
--- NOTE | 2019-12-08 10:22 | PT.IPTN ---
Current Diagnoses Spondylolisthesis, lumbar region (12/06/19) Other spondylosis with radiculopathy, lumbosacral region (12/06/19) Spinal stenosis, lumbar region with neurogenic claudication (12/06/19) Arthrodesis status (12/06/19) Surgery Performed Operation Date: 12/06/19 07:45 Actual Procedures p L4-5 TLIF, L5-S1 HWR, L4-S1 PSF w/ instrumenation - Clarissa Rubio MD Physical Therapy Treatment Note M2 PT-IP Current Condition Start: 12/06/19 14:48 Freq: NEEDED Status: Discharge Protocol: Document 12/06/19 16:26 AW (Rec: 12/06/19 16:47 AW [id number]) Physical Therapy Current Condition Current Condition Evaluation Date 12/06/19 Treatment Diagnosis s/p L4-5 L5-S1 TLIF, impaired mobility Onset Date 12/06/19 Precautions Lumbar Precautions Log Roll,No Twisting,Limit Bending,Lifting Restriction of 10 lbs,Gait Belt above Incisional Area M3 PT-IP Subjective Start: 12/06/19 14:48 Freq: NEEDED Status: Discharge Protocol: Document 12/08/19 10:01 SP (Rec: 12/08/19 13:36 SP [id number]) Subjective Physical Therapy Visit Type Type Treatment Note Visit Start Time 10:01 Visit Stop Time 10:22 Total Visit Minutes 21 Number of PUBLIC RELATIONS ACCOUNT EXECUTIVE Visits 3 Physical Therapy Visit Comments Patient Comments Pt willing to do therapy. Therapy Pain Assessment Pain When Pain Assessed During Mobility Pain Present Pain Present Pain Reported Location low back Intensity 5 Scale Used Numeric (0 - 10) Pain Management Techniques Apply Cold,Re-positioning, Timing of Activity with Medications M4 PT-IP Mobility and Gait Start: 12/06/19 14:48 Freq: NEEDED Status: Discharge Protocol: Document 12/08/19 10:01 SP (Rec: 12/08/19 13:36 SP [id number]) PT-Transfer Assessment Sit to and From Stand Sit to and from Stand Standby Assistance,Use of Upper Extremities Equipment Transfer Assistive Device Gait Belt,Front Wheeled Walker Orthotic/Prosthetic Devices or Brace: No Transfers Transfer Destination Chair Transfer Technique pt ambulated using FWW Transfer Ability Level of Assist Standby Assistance,Use of Upper Extremities Comments Mobility Comments Pt was seated in chair when arrived [employer] in room stated just returning from walk in hallway, willing to work with therapy. Sit to stand using BUE SBA using FWW, ambulated from room to stairs and back using FWW SBA with improved stride length and foot clearance and decreased UE WB required on FWW as distance progressed. Pt ascend/descend 15 stairs using BUE on R or L HR side step with good spinal alignment to assimulated home environment CGA. Initial step leading RLE patient's leg buckled requiring Mod A for recovery then lead with LUE to ascend/ RLE descending step to gait with success CGA. Pt returned to chair when returned to room with good BUE descent into chair, assisted reclining leg rests and call light and all needs in reach prior to leaving. Pt reported 5/10 LBP and RLE weakness during stairs. Discussed progress during treatment with nurse and stated patient is able to return home with family to assist her when medically stable. Gait Assessment Gait Gait Assistance Required: Standby Assistance Distance (Feet) 330 Able to Maintain Weight Bearing Status Yes During Gait Assistive Devices Assistive Device Gait Belt,Front Wheeled Walker Orthotic/Prosthetic Devices or Brace: No Gait Deviations General Gait Pattern Antalgic Factors Limiting Gait Function Factors Limiting Gait Function Decreased Activity Tolerance, Decreased Strength,Limited Range of Motion,Pain Comments Gait Comments See mobility comments. Stair Climbing Assessment Evaluation Level of Assist On Stairs Contact Guard Assistance,1 Person Assistance Devices Stair Climbing Assistive Devices Left Railing,Right Railing Technique/Endurance Stair Climbing Direction Ascend and Descend Stair Climbing Technique Step to Step Number of Steps Climbed 3 Stair Climbing Set # Repetitions (reps) 5 Comments Stair Climbing Comments See mobility comments. PT-Balance Assessment Sitting Balance and Reactions Static Sitting Balance Ability Normal Dynamic Sitting Balance Ability Normal Standing Balance and Reactions Static Standing Balance Ability Good Dynamic Standing Balance Ability Fair Device Used FWW M5 PT-IP Objective Assessments Start: 12/06/19 14:48 Freq: NEEDED Status: Discharge Protocol: Document 12/06/19 16:26 AW (Rec: 12/06/19 16:47 AW [id number]) Orientation Orientation/Cognition Level of Alertness Alert Orientation Name,Day of Week,Place, Situation Language Function Ability No Deficits Noted Safety Awareness Decreased Safety Awareness Memory Description No Deficits Noted Gross Range of Motion Upper Extremity ROM Assessment Within Functional Limits Lower Extremity ROM Assessment Within Functional Limits Strength Lower Extremity Strength Assessment Bilaterally Impaired Comments Strength Comments Grossly 4-/5 to 4/5 BLE Coordination Assessment Gross Coordination Gross Coordination WNL Sensation Assessment Sensation Gross Sensation WNL Comments Sensation Comments Pt reported lack of shooting pain in either LE. Muscle Tone Muscle Tone WNL Yes M6 PT-IP Treatment Start: 12/06/19 14:48 Freq: NEEDED Status: Discharge Protocol: Document 12/06/19 16:26 AW (Rec: 12/06/19 16:47 AW [id number]) Physical Therapy Treatment Education Education Provided Precautions,Weight Bearing Status,Post-Op Packet,Safety Other Treatments Other Treatment Performed Provided education on role of PT, plan of care, post-op precautions, and safe use of FWW. M7 PT-IP Assessment and Plan Start: 12/06/19 14:48 Freq: NEEDED Status: Discharge Protocol: Document 12/08/19 10:01 SP (Rec: 12/08/19 13:36 SP [id number]) PT Summary Assessment and Plan Potential Rehabilitation Potential Good Status of Condition at Evaluation Evolving Summary Impairments Pain,ROM,Strength,Balance,Bed Mobility,Transfers,Gait, Activity Tolerance Assessment Summary Pt improving with gait quality with decreased pain with ambulation. Pt requires SBA for bed mobility, SBA for sit- stand, gait, CGA stair mgt, RLE buckled requiring Mod A for recovery then CGA rest of 14 stairs R or L HR. Pt is able to return home for family to assist when medically stable using FWW for mobility support at this time. Goals Bed Mobility Goal Independent Transfer Goal Independent,Front Wheeled Walker Gait Goal Independent,Front Wheel Walker Gait Distance 150 Other Goals - up/down 7 steps with R rail ascending and 8 steps with L rail ascending SBA Frequency of Treatment Frequency Of Treatment Twice a Day Recommendations To Nursing Amount of Assist Needed 1 Person Assist Discharge Recommendations PT Discharge Recommendations Home with Assistance Transportation Needs at Discharge Private Vehicle
--- NOTE | 2019-12-08 15:34 | CM.DPC ---
DCP Discharge Home Per MD, pt is medically stable to d/c home today after further PT CG training. Per PT, completing stairs and CG training today and recommending safe d/c home with family assist. Per RN, no concerns at this time. Plan: Patient discharged home with family assist today via family POV and no SW needs at this time. DENI Serna
== END 2019-12-08 13:21 | disposition home or self-care (01) | DRG 454 ==
PROVIDERS: Admitting Provider Orthopaedic Surgery Orthopaedic Surgery of the Spine; Visit Provider Orthopaedic Surgery Orthopaedic Surgery of the Spine
PROC: 0SG00AJ Fusion of Lumbar Vertebral Joint with Interbody Fusion Device, Posterior Approach, Anterior Column, Open Approach (ICD-10-PCS; principal; 2019-12-06 07:45)
DX: M48.061 Spinal stenosis, lumbar region without neurogenic claudication (principal); M96.0 Pseudarthrosis after fusion or arthrodesis; M43.16 Spondylolisthesis, lumbar region; J45.909 Unspecified asthma, uncomplicated; I10 Essential (primary) hypertension; M48.07 Spinal stenosis, lumbosacral region
CPT/HCPCS: 36415; 72100; 76000; 85014; 85018; 94640; 97116; 97161; 97165; 97530; 97535; C1776; C9290; J0131; J0330; J1100; J1170; J2250; J2405; J2704; J3010; J3410

== ENCOUNTER → 2020-07-28 11:07 | Outpatient (CLI) | payer OTHER, SELFPAY ==
[2019-12-06 13:45] VITALS: BMI 32.6
--- NOTE | 2020-07-28 | DI.MG.S_ITS ---
BILATERAL DIGITAL SCREENING MAMMOGRAM 3D/2D WITH CAD: 07/28/2020 CLINICAL: Routine screening. Family history of breast cancer. Comparison is made to exams dated: 06/12/2019 mammogram - [facility], 01/28/2018 mammogram, and [facility]/28/2017 [facility]. There are scattered fibroglandular elements in both breasts. Current study was also evaluated with a Computer Aided Detection (CAD) system. No significant masses, calcifications, or other findings are seen in either breast. There has been no significant interval change. IMPRESSION: NEGATIVE There is no mammographic evidence of malignancy. A 1 year screening mammogram is recommended. This exam was interpreted at Station ID: [id number]. NOTE: For mammograms, a report in lay terms will be sent to the patient. Approximately 15% of breast malignancies will not be visualized mammographically. In the management of a palpable breast mass, a negative mammogram must not discourage biopsy of a clinically suspicious lesion. Electronically Signed By: Inderjit martin/shazia:07/28/2020 12:18:09 letter sent: Normal Exam ACR BI-RADS Category 1: Negative [id number]
== END ==
PROVIDERS: PCP Family Medicine; Referring Provider Family Medicine; Visit Provider Family Medicine
DX: Z12.31 Encounter for screening mammogram for malignant neoplasm of breast (principal); Z80.3 Family history of malignant neoplasm of breast
CPT/HCPCS: 77063; 77067

== ENCOUNTER → 2020-08-14 11:39 | Outpatient (CLI) | payer OTHER, SELFPAY ==
[2019-12-06 13:45] VITALS: BMI 32.6
[2020-08-14 12:27] LABS: COVID19 -Nasal RAPID Negative (Negative)
== END ==
PROVIDERS: PCP Family Medicine; Visit Provider Specialist
DX: Z20.822 Contact with and (suspected) exposure to COVID-19 (principal)
CPT/HCPCS: 87635; C9803

== ENCOUNTER 2020-08-17 08:47 | Day surgery (SDC) | payer OTHER, SELFPAY ==
[2019-12-06 13:45] VITALS: BMI 32.6
--- NOTE | 2020-08-17 | PATH_ITS ---
[facility] Accession Number: [id number] . 01 Material submitted: . anal canal - POLYPS NEAR ANAL VERGE . 01 Clinical history: . SDC . 02 Diagnosis: Colon, Polyps Near Anal Verge, Biopsies: Hyperplastic polyps. MRV 08/22/2020 1121 Local . 02 Electronically signed: . Natalia Eid MD, Pathologist NPI- [id number] . 01 Gross description: . POLYPS NEAR ANAL VERGE: Received in formalin are 3 fragment(s) of kapoor, soft tissue measuring 0.3 x 0.3 x 0.3 cm to 0.3 x 0.2 x 0.1 cm submitted entirely in 1 cassette(s) /QBJ 08/19/2020 0857 Local . 02 Pathologist provided ICD-10: K62.1 . 02 CPT . 228529 Performed at: 01 [facility] [address] [facility] [address], [place], [place] [id number] MD Anmol Gonzalez MD Phone: [phone] Performed at: [address] [facility] [address] [place], [place] [id number] MD Natalia Eid MD Phone: [phone]
[2020-08-17 09:08] VITALS: BP 138/84; PULSE 81; RESP 18; TEMP 37; O2SAT 99; BMI 29.2
[2020-08-17] MEDS: LACTATED RINGERS 1,000 ML 200 ML IV (09:17)
--- NOTE | 2020-08-17 10:50 | P.HP_ITS ---
History of Present Illness History of Present Illness Date Patient Seen: 08/17/20 Time Patient Seen: 10:50 Chief complaint: SDC Narrative: The patient is a woman here for screening colonoscopy. Her last exam was 5 years ago. Her father had colon cancer in his 60s. She has had polyps removed at her 1st exam which was over decade ago. Patient History Medical History Asthma Chronic back pain DDD (degenerative disc disease) Diverticulosis Floaters Ganglion cyst of both wrists HTN (hypertension) Kidney stones (~2017) Pelvic fracture (09/2017) Sciatica Surgical History History of bilateral tubal ligation History of colonoscopy History of lumbar fusion (06/2000) History of partial hysterectomy Hx of dilation and curettage Hx of elbow surgery Hx of shoulder surgery Hx of shoulder surgery Family & Social History Social History: household members children Tobacco & Substance use: Tobacco type cigarettes Smoking Status Former smoker alcohol intake never Substance Use Type does not use Meds Home Medications and Allergies Home Medications Medication Instructions Recorded Confirmed Type budesonide-formoterol [Symbicort] 2 puff INHALATION DAILY 08/31/19 08/17/20 Hi story chlorthalidone 25 mg PO DAILY 08/31/19 08/17/20 History diclofenac sodium 75 mg PO BID 08/31/19 08/17/20 History gabapentin 600 mg PO TID 08/31/19 08/17/20 History losartan 100 mg PO DAILY 08/31/19 08/17/20 History mometasone 2 spray INTRANASAL DAILY 08/31/19 08/17/20 History hydroxyzine pamoate 25 mg PO Q4HR PRN #40 cap 12/08/19 08/17/20 Rx oxycodone 10 mg PO Q4-5H PRN #80 tab 12/08/19 08/17/20 Rx Allergies Allergy/AdvReac Type Severity Reaction Status Date / Time adhesive tape Allergy Severe Rash - Pt Verified 12/06/19 07:26 unsure which tape it is nickel Allergy Severe Hives, Rash Verified 12/06/19 07:26 Penicillins Allergy Severe Hives Verified 12/06/19 07:26 Tetracyclines Allergy Intermediate Rash Verified 12/06/19 07:26 Review of Systems Review of Systems Narrative: Has asthma in used her inhalers. Has some chronic back issues and takes medication for that. S hypertension on medication. ROS: Yes All systems reviewed with the patient and are negative except as otherwise documented Exam Vital Signs (past 8 hours): - 08/17/20 09:08 Temperature 98.6 F Pulse Rate 81 Respiratory Rate 18 Blood Pressure 138/84 Pulse Oximetry 99 Oxygen Delivery Method Room Air Narrative Exam Narrative: Pleasant cooperative patient no apparent distress. Lungs are clear to auscultation. No rales or rhonchi. Heart regular rate and rhythm no murmur gallop. Abdomen is soft nontender without mass. No obvious hernias. Patient is alert and oriented x3. Assessment & Plan Assessment & Plan narrative: The patient for a screening colonoscopy. I have discussed the procedure with them. Risks of bleeding, perforation which would necessitate major operation, failure to find remove all lesions, the potential tattoo were all discussed. All questions were answered. They wished to proceed.
[2020-08-17] MEDS: fentaNYL 250 MCG/5 ML INJ IV (10:52)
--- NOTE | 2020-08-17 10:52 | PM.PREOP ---
Pre-operative Note COVID-19 COVID-19 status: Negative Result date/Date tested (Pos, Neg/Pending): 08/16/20 Interval Note History & Physical reviewed/Exam performed by Physician: Yes Changes to H&P: No ASA Class (for procedural sedation): III
[2020-08-17] MEDS: MIDAZOLAM 5 MG/5 ML VIAL IV (10:53)
--- NOTE | 2020-08-17 11:28 | PM.OP.ENDO ---
Operative Date/Time/Diagnoses Date of procedure: 08/17/20 Time of procedure: 11:28 Pre-op diagnosis: Screening exam. Family history of colon cancer and personal history of polyps. Last exam about 5 years ago. Post-op diagnosis: same (Small polypoid lesions in the near the anus. Diverticulosis.) Procedure & Clinicians Study performed: Colonoscopy with cold biopsy Same procedure as scheduled: Yes Indications: Screening in high risk patient Surgeon: Amandeep Reynolds Procedure Notes SCOAP/Timeout: Performed Procedure in detail: The patient was placed in the left lateral decubitus position and underwent IV sedation directed by the surgeon consisting of fentanyl and Versed. Digital exam was unremarkable.. The scope was inserted and advanced through the rectum into the sigmoid, descending, transverse, and ascending colon. Patient was noted to have left-sided diverticulosis. A stiffener was inserted and pressure applied and we were able to reach the cecum.. The cecum was reached identified by the ileocecal valve and the appendiceal opening. The ileocecal valve was successfully cannulated. The terminal ileum was normal in appearance. The scope was gradually brought out. No Polyps were found until I reach the rectum. On retroflexed view there appeared to be some polyp like lesions near the anus which I biopsied and removed. These may not be neoplastic.. The scope was removed and the patient tolerated the procedure well. The prep was good. Scope withdrawal time: 8 minutes Sedation minutes: 31 Findings: diverticulosis (Left side of your colon) and polyp Specimen(s): other (Small polyps near the anal verge) Complications: none Post-procedure Recommendations: Colonscopy in 5 years Follow up: as needed Disposition: PACU
[2020-08-17 11:32] VITALS: BP 128/68; PULSE 78; RESP 12; TEMP 36.3; O2SAT 99
[2020-08-17 11:37] VITALS: BP 132/55; PULSE 80; RESP 12; O2SAT 97
[2020-08-17 11:40] VITALS: BP 109/84; PULSE 79; RESP 12; TEMP 36.3; O2SAT 98
== END 2020-08-17 11:55 | disposition home or self-care (01) ==
PROVIDERS: PCP Family Medicine; Referring Provider Family Medicine; Visit Provider Specialist
PROC: 0DJD8ZZ Inspection of Lower Intestinal Tract, Via Natural or Artificial Opening Endoscopic (ICD-10-PCS; CPT 45378; principal; 2020-08-17 10:00)
DX: Z12.11 Encounter for screening for malignant neoplasm of colon (principal); Z86.010 Personal history of colon polyps; Z80.0 Family history of malignant neoplasm of digestive organs; I10 Essential (primary) hypertension; K57.30 Diverticulosis of large intestine without perforation or abscess without bleeding
CPT/HCPCS: 45380; 99152; 99153; J2250; J3010